=== PATIENT | male | born 1960 | race Hispanic/Latino ===

== ENCOUNTER 2022-07-08 13:44 | Emergency (ER) | payer OTHER ==
[~2022-07-08] VITALS: Ht 182.9 cm; Wt 81.6 kg
[2022-07-08] MEDS ORDERED: METHOCARBAMOL500 MG PO (15:41)
[2022-07-08] MEDS ORDERED: ULTRAM 50MG50 MG PO (15:41)
[2022-07-08] MEDS ORDERED: CLINDAMYCIN HC150 MG PO (15:41)
== END 2022-07-08 15:55 | disposition home or self-care (01) ==
LOC: ER 15:28
DX: M54.42 Lumbago with sciatica, left side (principal); E11.621 Type 2 diabetes mellitus with foot ulcer; L97.511 Non-pressure chronic ulcer of other part of right foot limited to breakdown of skin; F17.210 Nicotine dependence, cigarettes, uncomplicated
CPT/HCPCS: 99283